=== PATIENT | male | born 1975 | race American Indian/Alaskan Native ===

== ENCOUNTER 2017-04-22 14:27 | Emergency (ER) | payer SELFPAY | END 2017-04-22 14:28 | disposition left against medical advice (07) | LOC: ED 14:27 | DX: R07.0 Pain in throat (principal); Z53.21 Procedure and treatment not carried out due to patient leaving prior to being seen by health care provider ==

== ENCOUNTER 2017-04-23 00:40 | Emergency (ER) | payer SELFPAY ==
[2017-04-23 00:50] VITALS: BP 142/97
[2017-04-23] MEDS ORDERED: TYLENOL PO ONE (00:51)
[2017-04-23] MEDS ORDERED: TYLENOL ONE (00:51)
[2017-04-23] MEDS ORDERED: NORCO 5/325 PO ONE (07:34)
--- NOTE | 2017-04-23 09:15 | Emergency Department Report ---
ED Peds HEENT HPI - General Chief Complaint: Sore Throat Stated Complaint: SORE THROAT Source: patient Mode of arrival: Ambulatory Limitations: No Limitations - History of Present Illness Initial Comments: 41 year old male presents to ED with sore throat x2-3 days. patient states he thinks he has thrush and has history of is HIV positive. patient is stable, neurologically intact and in no acute distress. MD Complaint: throat pain -: Gradual Fever: No Pain Location: throat Radiation: none Severity scale (0 -10): 8 Consistency: constant Associated Symptoms: denies other symptoms - Centor Criteria Exudate or Swelling of Tonsils: (0) No Tender/Swollen Anterior Cervical Lymph Nodes: (0) No Fever ( T > 38C, 100.4F): (0) No Abscence of Cough: (1) Yes - Related Data Previous Rx's Medication Instructions Recorded Last Taken Type Fluconazole [Diflucan TAB] 100 mg PO QDAY #7 tablet 04/23/17 Unknown Rx Allergies Allergy/AdvReac Type Severity Reaction Status Date / Time No Known Allergies Allergy Verified 04/23/17 00:58 ED Review of Systems ROS: Stated complaint: SORE THROAT Other details as noted in HPI Constitutional: denies: chills, fever Eyes: denies: eye pain, eye discharge, vision change ENT: throat pain. denies: ear pain, dental pain, congestion Respiratory: denies: cough, shortness of breath, wheezing Cardiovascular: denies: chest pain, palpitations Endocrine: no symptoms reported Gastrointestinal: denies: abdominal pain, nausea, diarrhea Genitourinary: denies: urgency, dysuria Musculoskeletal: denies: back pain, joint swelling, arthralgia Skin: denies: rash, lesions Neurological: denies: headache, weakness, paresthesias Psychiatric: denies: anxiety, depression Hematological/Lymphatic: denies: easy bleeding, easy bruising Pediatric Past Medical History - Chronic Health Problems Hx HIV: Yes ED Peds HEENT EXAM - General General appearance: alert, in no apparent distress Limitations: No Limitations - Head Head exam: Positive: atraumatic - Eye Eye Exam: Normal Apperance, PERRL, EOMI - ENT ENT exam: Positive: normal exam, TM's normal bilaterally Positive: Other (white plaques present bilateral tongue, cheeks) Ear Exam: Normal External Exam: Left, Right - Neck Neck exam: Positive: normal inspection, full ROM. Negative: tenderness - Respiratory Respiratory exam: Positive: normal lung sounds bilaterally - Cardiovascular Cardiovascular Exam: Positive: regular rate, normal rhythm - GI/Abdominal GI/Abdominal exam: Positive: soft. Negative: distended, tenderness - Extremities Extremities exam: Positive: normal inspection, full ROM - Back Back exam: normal inspection - Neurological Neurological Exam: Positive: Alert, Oriented X3, Normal Gait - Psychiatric Psychiatric exam: Positive: normal affect, normal mood - Skin Skin exam: Positive: warm, dry, intact, normal color ED Course Vital Signs 04/23/17 04/23/17 00:48 00:53 Temperature 99.6 F Pulse Rate 69 Respiratory 18 Rate Blood Pressure 142/97 O2 Sat by Pulse 100 Oximetry ED Medical Decision Making - Lab Data Negative rapid strep. pending culture. - Medical Decision Making 41 year old HIV positive male presents to ED with oral thrush. patient will be given RX for oral diflucan. patient has strep culture pending. patient is stable , neurologically intact and in no acute distress. Critical care attestation.: If time is entered above; I have spent that time in minutes in the direct care of this critically ill patient, excluding procedure time. ED Disposition Clinical Impression: Thrush, oral Disposition: DC-01 TO HOME OR SELFCARE Is pt being admited?: No Does the pt Need Aspirin: No Condition: Stable Instructions: Oral Candidiasis (ED) Prescriptions: Fluconazole [Diflucan TAB] 100 mg PO QDAY #7 tablet Referrals: PRIMARY CARE, [Primary Care Provider] - 3-5 Days Forms: Work/School Release Form(ED)
== END 2017-04-23 09:23 | disposition home or self-care (01) ==
LOC: ED 00:40
DX: B37.0 Candidal stomatitis (principal)
CPT/HCPCS: 87116; 87430; 99282

== ENCOUNTER 2017-06-14 18:55 | Emergency (ER) | payer OTHER ==
[2017-06-14 20:10] LABS: Basophils % (Auto) 0.8 % (0.0-1.8); Eosinophils % (Auto) 4.5 % (0.0-4.3); Hematocrit 26.2 % (35.5-45.6); Hemoglobin 8.8 gm/dl (11.8-15.2); Mean Corpuscular HGB Conc 34 % (32-34); Mean Corpuscular Hemoglobin 29 pg (28-32); Mean Corpuscular Volume 85 fl (84-94); Platelet Count 187 K/mm3 (140-440); Red Blood Count 3.08 M/mm3 (3.65-5.03); Red Cell Distribution Width 15.8 % (13.2-15.2); White Blood Count 4.8 K/mm3 (4.5-11.0)
[2017-06-14 20:30] LABS: Anion Gap 21 mmol/L; Blood Urea Nitrogen 14 mg/dL (9-20); Calcium 8.7 mg/dL (8.4-10.2); Carbon Dioxide 22 mmol/L (22-30); Chloride 97.4 mmol/L (98-107); Glucose 74 mg/dL (75-100); Potassium 3.9 mmol/L (3.6-5.0); Sodium 136 mmol/L (137-145)
--- NOTE | 2017-06-14 23:19 | Emergency Department Report ---
ED General Adult HPI - General Chief complaint: Sore Throat Stated complaint: THRUSH Time Seen by Provider: 06/14/17 22:56 Source: patient Mode of arrival: Ambulatory Limitations: No Limitations - History of Present Illness Initial comments: thrush sore throat x 1 week, hx hiv pos, no fever no chills no n/v tolerating po intake without difficulty pt pending intake with [facility] Onset/Timin -: week(s) Location: mouth Radiation: non-radiation Severity scale (0 -10): 5 Quality: burning, other (itching ) Consistency: constant Improves with: none Worsens with: none Associated Symptoms: denies: confusion, diaphoresis, fever/chills, headaches, loss of appetite, malaise, nausea/vomiting, rash, seizure, shortness of breath, syncope, weakness Treatments Prior to Arrival: none - Related Data Previous Rx's Medication Instructions Recorded Last Taken Type Fluconazole [Diflucan TAB] 100 mg PO QDAY #7 tablet 04/23/17 Unknown Rx Amoxicillin/K Clav Tab [Augmentin 1 tab PO Q12HR #20 tab 06/14/17 Unknown Rx 875 mg] Fluconazole [Diflucan TAB] 150 mg PO DAILY #7 tablet 06/14/17 Unknown Rx Ibuprofen [Motrin 800 MG tab] 800 mg PO Q8HR PRN #30 tablet 06/14/17 Unknown Rx Nystas/Diphen/Xyl Visc/Mylanta 15 ml PO BID #300 ml 06/14/17 Unknown Rx [Magic Mouthwash] Allergies Allergy/AdvReac Type Severity Reaction Status Date / Time No Known Allergies Allergy Verified 04/23/17 00:58 ED Review of Systems ROS: Stated complaint: THRUSH Other details as noted in HPI Constitutional: denies: chills, fever Eyes: denies: eye pain, eye discharge, vision change ENT: throat pain. denies: ear pain, hearing loss, congestion Respiratory: denies: cough, shortness of breath, wheezing Cardiovascular: denies: chest pain, palpitations Endocrine: no symptoms reported Gastrointestinal: denies: abdominal pain, nausea, diarrhea Genitourinary: denies: urgency, dysuria Musculoskeletal: denies: back pain, joint swelling, arthralgia Skin: denies: rash, lesions Neurological: denies: headache, weakness, paresthesias Psychiatric: denies: anxiety, depression Hematological/Lymphatic: denies: easy bleeding, easy bruising ED Past Medical Hx - Past Medical History Hx HIV: Yes - Surgical History Past Surgical History?: No - Social History Smoking Status: Current Every Day Smoker Substance Use Type: None - Medications Home Medications: Home Medications Medication Instructions Recorded Confirmed Last Taken Type Fluconazole [Diflucan TAB] 100 mg PO QDAY #7 tablet 04/23/17 Unknown Rx Amoxicillin/K Clav Tab [Augmentin 1 tab PO Q12HR #20 tab 06/14/17 Unknown Rx 875 mg] Fluconazole [Diflucan TAB] 150 mg PO DAILY #7 tablet 06/14/17 Unknown Rx Ibuprofen [Motrin 800 MG tab] 800 mg PO Q8HR PRN #30 tablet 06/14/17 Unknown Rx Nystas/Diphen/Xyl Visc/Mylanta 15 ml PO BID #300 ml 06/14/17 Unknown Rx [Magic Mouthwash] ED Physical Exam - General Limitations: No Limitations General appearance: alert, in no apparent distress - Head Head exam: Present: atraumatic, normocephalic - Eye Eye exam: Present: normal appearance, PERRL, EOMI Pupils: Present: normal accommodation - ENT ENT exam: Present: mucous membranes moist, TM's normal bilaterally, normal external ear exam - Expanded ENT Exam Expanded Mouth exam: Present: other (thrush erythema no swelling uvula midline no stridor ). Absent: drooling, trismus, muffled voice, tongue elevation, laceration Throat exam: Positive: tonsillar erythema, tonsillomegaly, tonsillar exudate. Negative: R peritonsillar mass, L peritonsillar mass - Neck Neck exam: Present: normal inspection, full ROM. Absent: tenderness, lymphadenopathy, thyromegaly - Respiratory Respiratory exam: Present: normal lung sounds bilaterally. Absent: respiratory distress, wheezes, rhonchi, stridor, chest wall tenderness - Cardiovascular Cardiovascular Exam: Present: regular rate, normal rhythm. Absent: systolic murmur, diastolic murmur, rubs, gallop - GI/Abdominal GI/Abdominal exam: Present: soft, normal bowel sounds. Absent: distended, tenderness, guarding, rebound, rigid, organomegaly, mass, bruit - Rectal Rectal exam: Present: deferred - Extremities Exam Extremities exam: Present: normal inspection - Back Exam Back exam: Present: normal inspection - Neurological Exam Neurological exam: Present: alert, oriented X3 - Psychiatric Psychiatric exam: Present: normal affect, normal mood - Skin Skin exam: Present: warm ED Course Vital Signs 06/14/17 19:50 Temperature 98.6 F Pulse Rate 87 Respiratory 18 Rate Blood Pressure 136/86 O2 Sat by Pulse 100 Oximetry ED Medical Decision Making - Lab Data Result diagrams: 06/14/17 20:00 06/14/17 20:00 - Medical Decision Making pt is a 42 y/o aam hx HIV pos who presents for sore throat with thrush x 1 week [facility] , pt denies fever or chills pt is tolerating po intake with difficulty symptoms include itching and pain exam: moderate pharynx erythema thrush tonsilar megally uvula midline no stridor airw is patent. will treat for same [facility] saturday [facility] days from now pt verbalized agreement and understanding of same will first treatment dose now as he cannot get medications until am. Critical care attestation.: If time is entered above; I have spent that time in minutes in the direct care of this critically ill patient, excluding procedure time. ED Disposition Clinical Impression: Thrush, oral Pharyngitis Qualifiers: Pharyngitis/tonsillitis etiology: unspecified etiology Qualified Code(s): J02.9 - Acute pharyngitis, unspecified Disposition: DC-01 TO HOME OR SELFCARE Is pt being admited?: No Does the pt Need Aspirin: No Condition: Good Instructions: Pharyngitis (ED), Oral Candidiasis (ED) Additional Instructions: follow up with [facility] as directed: [phone] [address] [facility] [address] Prescriptions: Amoxicillin/K Clav Tab [Augmentin 875 mg] 1 tab PO Q12HR #20 tab Fluconazole [Diflucan TAB] 150 mg PO DAILY #7 tablet Ibuprofen [Motrin 800 MG tab] 800 mg PO Q8HR PRN #30 tablet PRN Reason: Pain Nystas/Diphen/Xyl Visc/Mylanta [Magic Mouthwash] 15 ml PO BID #300 ml Referrals: PRIMARY CARE, [Primary Care Provider] - 3-5 Days Forms: Work/School Release Form(ED)
[2017-06-14] MEDS ORDERED: DIFLUCAN PO ONE ×2 (23:26)
[2017-06-14] MEDS ORDERED: AUGMENTIN 875 MG PO ONE (23:26)
[2017-06-14] MEDS ORDERED: LIDOCAINE VISCOUS 2% PO ONE (23:26)
[2017-06-15 01:32] VITALS: BP 128/77
== END 2017-06-15 00:02 | disposition home or self-care (01) ==
LOC: ED 18:55
DX: B37.0 Candidal stomatitis (principal); J02.9 Acute pharyngitis, unspecified; F17.210 Nicotine dependence, cigarettes, uncomplicated
CPT/HCPCS: 36415; 80048; 85025; 99283